=== PATIENT | female | born 1995 | race African-American/Black ===

== ENCOUNTER 2016-08-26 00:37 | Emergency (ER) | payer SELFPAY ==
[~2016-08-26] VITALS: Ht 167.6 cm; Wt 121.0 kg
[2016-08-26 04:30] VITALS: BP 136/79
== END 2016-08-26 04:30 | disposition home or self-care (01) ==
LOC: ER 00:37
DX: B85.0 Pediculosis due to Pediculus humanus capitis (principal)
CPT/HCPCS: 99282; 99283